=== PATIENT | male | born 1970 | race Caucasian/White ===

== ENCOUNTER 2016-12-23 06:26 | Emergency (ER) | payer BC | END 2016-12-23 08:15 | disposition home or self-care (01) | LOC: ER 06:26 | DX: R51 Headache (principal); I10 Essential (primary) hypertension; J40 Bronchitis, not specified as acute or chronic; M06.9 Rheumatoid arthritis, unspecified; Z87.442 Personal history of urinary calculi; F17.200 Nicotine dependence, unspecified, uncomplicated; M19.90 Unspecified osteoarthritis, unspecified site; Z79.899 Other long term (current) drug therapy ==